=== PATIENT | female | born 1955 | race Caucasian/White ===

== ENCOUNTER 2017-06-22 12:52 | Outpatient (CLI) | payer OTHER | END 2017-06-22 12:53 | disposition home or self-care (01) | LOC: BICMAMMO 12:52 | PROVIDERS: ATTEND Family Medicine | DX: Z12.31 Encounter for screening mammogram for malignant neoplasm of breast (principal); Z13.820 Encounter for screening for osteoporosis; Z80.3 Family history of malignant neoplasm of breast; Z85.3 Personal history of malignant neoplasm of breast | CPT/HCPCS: 77063; 77067; 77080 ==

== ENCOUNTER 2018-03-28 18:07 | Emergency (ER) | payer OTHER ==
[~2018-03-28 18:07] MED LIST: ISOVUE-370 76%-LOCM 1 ML ONE
[2018-03-28 19:01] LABS: #Basophils 0.1 thou/uL (0.0-0.2); #Eosinphils 0.2 thou/uL (0.0-0.7); #Lymphocytes 3.1 thou/uL (1.20-3.40); #Monocytes 0.5 thou/uL (0.11-0.59); #Neutrophils 4.7 thou/uL (1.40-6.50); %Basophils 0.8 % (0.0-1.0); %Lymphocytes 36.4 % (21.0-51.0); %Neutrophils 54.8 % (42.0-75.0); Hemoglobin 14.1 g/dL (12.0-16.0); Mean Corpuscular HGB CONC 34.4 g/dL (32.0-36.0); Mean Corpuscular Hemoglobin 32.7 pg (27.0-31.0); Mean Corpuscular Volume 95.1 fL (78.0-98.0); Mean Platelet Volume 6.9 fL (7.4-10.4); Platelet Count 307 thou/uL (130-400); RBC Distribution Width 11.5 % (11.5-14.5); Red Blood Cell (RBC) Count 4.31 mill/uL (4.20-5.40); White Blood Cell (WBC) Count 8.6 thou/uL (4.8-10.8)
[2018-03-28 19:43] LABS: ALT (SGPT) 19 U/L (8-55); AST (SGOT) 32 U/L (5-34); Albumin 4.4 g/dL (3.4-4.8); Alcohol 63 mg/dL (Less than 10); Alkaline Phosphatase 112 U/L (40-150); Anion Gap 18 mmol/L (10-20); BUN (Urea Nitrogen) 11 mg/dL (9.8-20.1); Bilirubin, Total 0.2 mg/dL (0.2-1.2); Calc. Creatinine Clearance 0 mL/min (70-130); Calcium 9.7 mg/dL (7.8-10.44); Carbon Dioxide 17 mmol/L (23-31); Chloride 102 mmol/L (98-107); Estimated GFR-MDRD 81; Globulin 3.4 g/dL (2.4-3.5); Glucose 115 mg/dL (80-115); Lipase 63 U/L (8-78); Protein, Total 7.8 g/dL (6.0-8.3); Sodium 133 mmol/L (136-145)
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
[2018-03-28] MEDS ORDERED: traMADol HCl 50 MG TAB ONE (20:48)
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
--- NOTE | 2018-04-01 16:37 | EKG ---
Test Reason : Blood Pressure : / mmHG Vent. Rate : 088 BPM Atrial Rate : 088 BPM P-R Int : 144 ms QRS Dur : 116 ms QT Int : 382 ms P-R-T Axes : 053 023 006 degrees QTc Int : 462 ms Sinus rhythm with Premature atrial complexes with Abberant conduction Possible Left atrial enlargement Right bundle branch block Anterior infarct , age undetermined Abnormal ECG Confirmed by KEVON CERON, DR. Yost ([id number]) on 04/01/2018 4:37:16 PM Referred By: Confirmed By:DR. Ritika LUND MD
== END 2018-03-28 21:44 | disposition home or self-care (01) ==
LOC: ERS 18:07
DX: S92.321A Displaced fracture of second metatarsal bone, right foot, initial encounter for closed fracture (principal); K04.7 Periapical abscess without sinus; E04.1 Nontoxic single thyroid nodule; I10 Essential (primary) hypertension; E78.00 Pure hypercholesterolemia, unspecified; F41.9 Anxiety disorder, unspecified; F17.210 Nicotine dependence, cigarettes, uncomplicated; Z79.899 Other long term (current) drug therapy; V59.40XA Driver of pick-up truck or van injured in collision with unspecified motor vehicles in traffic accident, initial encounter
CPT/HCPCS: 70450; 71260; 72125; 74177; 80053; 80307; 83690; 85025; 93005; Q9966

== ENCOUNTER 2018-05-03 15:09 | Outpatient (CLI) | payer OTHER ==
--- NOTE | 2018-05-03 16:23 | ULT ---
ULTRASOUND THYROID: 05/03/18 HISTORY: 63-year-old female with solitary left thyroid nodule, found on recent chest CT. FINDINGS: Right lobe measures approximately 3.5 x 1.5 x 1.2 cm. Left lobe measures approximately 3.5 x 1.9 x 1.5 cm. Isthmus is 0.5 cm AP. Thyroid parenchymal echogenicity is bilaterally homogeneous and normal. There is a single 1.4 x 1.2 x 1.4 cm solid nodule in the left mid pole: Composition: Completely solid: 2 points. Echogenicity: Isoechoic: 1 point. Shape: Wider than tall: 0 points. Margin: Smooth: 0 points. Echogenic foci: None: 0 points. Total score: 3 points. TIRADS category 3: Mildly suspicious. Recommendation for category 3 is for fine needle aspiration only if greater than or equal to 2.5 cm. This is significantly less than that in size. IMPRESSION: 1. Solitary left thyroid nodule. 2. TIRADS category 3: Mildly suspicious. 3. Recommend serial followup thyroid ultrasounds at 1, 3, and 5 years. POS: [facility]
== END 2018-05-03 15:10 | disposition home or self-care (01) ==
LOC: BICULT 15:09
PROVIDERS: ATTEND Family Medicine
DX: E04.1 Nontoxic single thyroid nodule (principal)
CPT/HCPCS: 76536

== ENCOUNTER 2018-07-14 12:06 | Outpatient (CLI) | payer OTHER ==
--- NOTE | 2018-07-15 07:53 | MMO ---
Bilateral MAMMO Bilat Screen [facility]. CLINICAL HISTORY: Patient is 63 years old and is seen for screening. The patient has the following family history of breast cancer: sister, at age 36, premenopausal; maternal aunt, premenopausal; cousin gender unknown; mother; maternal aunt, premenopausal and maternal aunt, premenopausal. The patient has a history of malignant (generic) in the left breast at age 49. The patient has a history of left Lumpectomy in April, - malignant and left Excisional Biopsy in September, - benign. VIEWS: The views performed were: bilateral craniocaudal with tomosynthesis and bilateral mediolateral oblique with tomosynthesis. FILMS COMPARED: The present examination has been compared to prior imaging studies performed at [facility] on 08/10/2005, 09/28/2011, 04/13/2014, 06/19/2016 and 06/22/2017. MAMMOGRAM FINDINGS: The breasts are heterogeneously dense, which could obscure a lesion on mammography. There are stable benign appearing calcifications seen in both breasts. There are no suspicious masses, suspicious calcifications, or new areas of architectural distortion. IMPRESSION: THERE IS NO MAMMOGRAPHIC EVIDENCE OF MALIGNANCY. A ROUTINE FOLLOW-UP MAMMOGRAM IN 1 YEAR IS RECOMMENDED. THE RESULTS OF THIS EXAM WERE SENT TO THE PATIENT. ACR BI-RADS Category 2 - Benign finding MAMMOGRAPHY NOTE: 1. A negative mammogram report should not delay a biopsy if a dominant of clinically suspicious mass is present. 2. Approximately 10% to 15% of breast cancers are not detected by mammography. 3. Adenosis and dense breasts may obscure an underlying neoplasm.
== END 2018-07-14 12:07 | disposition home or self-care (01) ==
LOC: BICMAMMO 12:06
PROVIDERS: ATTEND Family Medicine
DX: Z12.31 Encounter for screening mammogram for malignant neoplasm of breast (principal); Z85.3 Personal history of malignant neoplasm of breast; Z80.3 Family history of malignant neoplasm of breast
CPT/HCPCS: 77063; 77067

== ENCOUNTER 2022-02-26 13:54 | Outpatient (CLI) | payer MEDICARE | END 2022-02-26 13:55 | disposition home or self-care (01) | LOC: TBSIIMAG 13:54 | PROVIDERS: ATTEND Student in an Organized Health Care Education/Training Program | DX: M54.2 Cervicalgia (principal); M47.812 Spondylosis without myelopathy or radiculopathy, cervical region; M50.321 Other cervical disc degeneration at C4-C5 level | CPT/HCPCS: 72141 ==

== ENCOUNTER 2022-03-13 07:47 | Outpatient (CLI) | payer MEDICARE | END 2022-03-13 07:48 | disposition home or self-care (01) | LOC: TBSIIMAG 07:47 | PROVIDERS: ATTEND Family Medicine | DX: M47.814 Spondylosis without myelopathy or radiculopathy, thoracic region (principal); M51.34 Other intervertebral disc degeneration, thoracic region | CPT/HCPCS: 72072; 72146 ==

== ENCOUNTER 2022-06-18 12:25 | Outpatient (CLI) | payer MEDICARE | END 2022-06-18 12:26 | disposition home or self-care (01) | LOC: BICRAD 12:25 | PROVIDERS: ATTEND Chiropractor | DX: M53.84 Other specified dorsopathies, thoracic region (principal); M43.9 Deforming dorsopathy, unspecified | CPT/HCPCS: 72081 ==

== ENCOUNTER 2022-11-13 11:25 | Outpatient (CLI) | payer MEDICARE | END 2022-11-13 11:26 | disposition home or self-care (01) | LOC: BICMAMMO 11:25 | PROVIDERS: ATTEND Student in an Organized Health Care Education/Training Program | DX: Z12.31 Encounter for screening mammogram for malignant neoplasm of breast (principal); Z90.12 Acquired absence of left breast and nipple; Z85.3 Personal history of malignant neoplasm of breast; Z80.3 Family history of malignant neoplasm of breast; Z91.89 Other specified personal risk factors, not elsewhere classified | CPT/HCPCS: 77063; 77067 ==

== ENCOUNTER 2022-12-07 08:53 | Outpatient (CLI) | payer MEDICARE | END 2022-12-07 08:54 | disposition home or self-care (01) | LOC: BICCT 08:53 | PROVIDERS: ATTEND Student in an Organized Health Care Education/Training Program | DX: Z12.2 Encounter for screening for malignant neoplasm of respiratory organs (principal); F17.210 Nicotine dependence, cigarettes, uncomplicated | CPT/HCPCS: 71271 ==

== ENCOUNTER 2023-01-12 08:35 | Outpatient (CLI) | payer MEDICARE | END 2023-01-12 08:36 | disposition home or self-care (01) | LOC: BICMAMMO 08:35 | PROVIDERS: ATTEND Student in an Organized Health Care Education/Training Program | DX: Z13.820 Encounter for screening for osteoporosis (principal); M81.0 Age-related osteoporosis without current pathological fracture; M85.88 Other specified disorders of bone density and structure, other site | CPT/HCPCS: 77080 ==

== ENCOUNTER 2023-08-30 07:57 | Outpatient (CLI) | payer MEDICARE ==
[2023-08-30] MEDS ORDERED: Iopamidol 370 76% 100 ML VIAL ONE (11:30)
== END 2023-08-30 07:58 | disposition home or self-care (01) ==
LOC: BICCT 07:57
PROVIDERS: ATTEND Physician Assistant
DX: I73.9 Peripheral vascular disease, unspecified (principal); I77.89 Other specified disorders of arteries and arterioles; D25.9 Leiomyoma of uterus, unspecified
CPT/HCPCS: 75635; 82565; Q9967

== ENCOUNTER 2023-09-05 19:04 | Emergency (ER) | payer MEDICARE, OTHER ==
[~2023-09-05 19:04] MED LIST changes: -ISOVUE-370 76%-LOCM 1 ML ONE; +Iopamidol-370 76% 500 ML MDV (1 ML CHARGE) ONE
[2023-09-05 19:35] LABS: #Basophils 0.05 10x3/uL (0.0-0.2); %Basophils 0.5 % (0.0-1.0); %Lymphocytes 46.1 % (21.0-51.0); %Monocytes 8.3 % (0.0-10.0); %Neutrophils 43.4 % (42.0-75.0); Hematocrit 37.3 % (36.0-47.0); Hemoglobin 12.8 g/dL (12.0-16.0); Mean Corpuscular HGB CONC 34.3 g/dL (32.0-36.0); Mean Corpuscular Hemoglobin 32.5 pg (27.0-31.0); Mean Corpuscular Volume 94.7 fL (78.0-98.0); Mean Platelet Volume 8.5 fL (7.4-10.4); Platelet Count 280 10x3/uL (130-400); RBC Distribution Width 12.9 % (11.5-14.5); Red Blood Cell (RBC) Count 3.94 mill/uL (4.20-5.40)
[2023-09-05 19:45] LABS: Alcohol 252.7 mg/dL (Less than 10)
[2023-09-05 19:47] LABS: ALT (SGPT) 19 U/L (8-55); AST (SGOT) 20 U/L (5-34); Alkaline Phosphatase 95 U/L (40-110); Anion Gap 15 mmol/L (10-20); BUN (Urea Nitrogen) 8 mg/dL (9.8-20.1); Bilirubin, Total 0.4 mg/dL (0.2-1.2); Calc. Creatinine Clearance 0 mL/min (70-130); Calcium 9.2 mg/dL (7.8-10.44); Carbon Dioxide 18 mmol/L (23-31); Chloride 97 mmol/L (98-107); Estimated GFR 100; Globulin 2.8 g/dL (2.4-3.5); Glucose 105 mg/dL (80-115); Lipase 57 U/L (8-78); Protein, Total 6.8 g/dL (5.8-8.1); Sodium 127 mmol/L (136-145)
[2023-09-05 19:48] LABS: INR-International Normal Ratio 0.9; PTT 29.3 sec (22.9-36.1); Prothrombin Time 12.1 sec (12.0-14.7)
[2023-09-05 19:53] LABS: Troponin I Less than 0.010 ng/mL (< 0.028)
[2023-09-05] MEDS ORDERED: fentaNYL 50 mcg/mL 1 mL Vial ONE ×2 (20:02→20:58)
[2023-09-05] MEDS ORDERED: Morphine 4 MG/ML VIAL ONE (21:59)
== END 2023-09-05 23:32 | disposition home or self-care (01) ==
LOC: ERS 19:04
DX: S52.572A Other intraarticular fracture of lower end of left radius, initial encounter for closed fracture (principal); I10 Essential (primary) hypertension; F17.210 Nicotine dependence, cigarettes, uncomplicated; W10.8XXA Fall (on) (from) other stairs and steps, initial encounter; Z79.82 Long term (current) use of aspirin
CPT/HCPCS: 29105; 70450; 71260; 72125; 73030; 73090; 74177; 80053; 80307; 83690; 84484; 85025; 85610; 85730; 93005; 96374; 96375; 96376; 99284; J2270; J3010; Q9967; 36415

== ENCOUNTER 2023-12-16 10:16 | Outpatient (CLI) | payer MEDICARE | END 2023-12-16 10:17 | disposition home or self-care (01) | LOC: BICCT 10:16 | PROVIDERS: ATTEND Family Medicine | DX: Z12.2 Encounter for screening for malignant neoplasm of respiratory organs (principal); F17.210 Nicotine dependence, cigarettes, uncomplicated; R91.8 Other nonspecific abnormal finding of lung field; J43.9 Emphysema, unspecified | CPT/HCPCS: 71271 ==

== ENCOUNTER 2024-01-07 11:59 | Outpatient (CLI) | payer MEDICARE ==
[2024-01-07 13:53] LABS: #Basophils 0.03 10x3/uL (0.0-0.2); %Basophils 0.4 % (0.0-1.0); %Eosinophils 1.5 % (0.0-10.0); %Monocytes 8.7 % (0.0-10.0); %Neutrophils 59.7 % (42.0-75.0); Hematocrit 34.1 % (36.0-47.0); Hemoglobin 12.2 g/dL (12.0-16.0); Mean Corpuscular HGB CONC 35.8 g/dL (32.0-36.0); Mean Corpuscular Hemoglobin 32.7 pg (27.0-31.0); Mean Corpuscular Volume 91.4 fL (78.0-98.0); Mean Platelet Volume 8.9 fL (7.4-10.4); Platelet Count 326 10x3/uL (130-400); RBC Distribution Width 13.3 % (11.5-14.5); Red Blood Cell (RBC) Count 3.73 mill/uL (4.20-5.40)
[2024-01-07 14:19] LABS: Anion Gap 13 mmol/L (10-20); BUN (Urea Nitrogen) 9 mg/dL (9.8-20.1); Calc. Creatinine Clearance 0 mL/min (70-130); Calcium 9.4 mg/dL (7.8-10.44); Carbon Dioxide 23 mmol/L (23-31); Chloride 92 mmol/L (98-107); Estimated GFR 99; Glucose 86 mg/dL (80-115); Potassium 3.5 mmol/L (3.5-5.1); Sodium 124 mmol/L (136-145)
== END 2024-01-07 12:00 | disposition home or self-care (01) ==
LOC: LABBT 11:59
PROVIDERS: ATTEND Specialist
DX: Z01.818 Encounter for other preprocedural examination (principal); R92.1 Mammographic calcification found on diagnostic imaging of breast; S42.212D Unspecified displaced fracture of surgical neck of left humerus, subsequent encounter for fracture with routine healing; S42.292D Other displaced fracture of upper end of left humerus, subsequent encounter for fracture with routine healing
CPT/HCPCS: 71045; 80048; 85025; 93005; 93010

== ENCOUNTER 2024-01-13 06:29 | Day surgery (SDC) | payer MEDICARE ==
[2024-01-07 12:41] VITALS: BMI 24.4
[2024-01-13] MEDS ORDERED: Ketorolac Tromethamine 30 MG (1 mL) VIAL ONE (08:30)
[2024-01-13] MEDS ORDERED: Acetaminophen 500 MG TAB ONE (08:31)
[2024-01-13] MEDS ORDERED: PROPOFOL 20 ML ONE (09:55)
[2024-01-13] MEDS ORDERED: Lidocaine 1% PF 5 ML VIAL ONE ×2 (09:55→10:08)
[2024-01-13] MEDS ORDERED: Midazolam HCl 2 mg/2 ml Vial ONE ×2 (10:04→10:36)
[2024-01-13] MEDS ORDERED: EPINEPHrine 1 MG/ML VIAL ONE (10:07)
[2024-01-13] MEDS ORDERED: Bupivacaine 0.25% HCL 30 ML VIAL ONE (10:08)
[2024-01-13] MEDS ORDERED: CEFAZOLIN 2 GM VIAL ONE (10:21)
[2024-01-13] MEDS ORDERED: fentaNYL PF 100 MCG/2 ML SYRINGE ONE (10:22)
[2024-01-13] MEDS ORDERED: Ondansetron PF 4 MG/2 ML Vial ONE (10:23)
[2024-01-13] MEDS ORDERED: Dexamethasone 20 MG/5 ML VIAL ONE (10:23)
[2024-01-13] MEDS ORDERED: PHENYLEPHRINE-NS 100 MCG/ML 10 ML SYRINGE ONE (10:47)
== END 2024-01-13 13:50 | disposition home or self-care (01) ==
LOC: SDC 06:29
PROVIDERS: ATTEND Specialist
PROC: 0HBT3ZX Excision of Right Breast, Percutaneous Approach, Diagnostic (ICD-10-PCS; principal; 2024-01-13)
DX: D05.11 Intraductal carcinoma in situ of right breast (principal); N60.11 Diffuse cystic mastopathy of right breast; I10 Essential (primary) hypertension; F17.200 Nicotine dependence, unspecified, uncomplicated; Z85.3 Personal history of malignant neoplasm of breast; Z87.59 Personal history of other complications of pregnancy, childbirth and the puerperium; Z90.49 Acquired absence of other specified parts of digestive tract; Z79.82 Long term (current) use of aspirin; Z79.1 Long term (current) use of non-steroidal anti-inflammatories (NSAID); Z79.899 Other long term (current) drug therapy
CPT/HCPCS: 19125; 19281; 76098; C1713; J0171; J0665; J1100; J1885; J2250; J2405; J2704; 88307

== ENCOUNTER 2024-03-28 09:57 | Outpatient (CLI) | payer MEDICARE | END 2024-03-28 09:58 | disposition home or self-care (01) | LOC: BICULT 09:57 | PROVIDERS: ATTEND Student in an Organized Health Care Education/Training Program | DX: D25.9 Leiomyoma of uterus, unspecified (principal); R60.0 Localized edema | CPT/HCPCS: 76856; 93976 ==

== ENCOUNTER 2024-03-31 15:15 | Emergency (ER) | payer MEDICARE ==
[2024-03-31 16:26] LABS: #Basophils 0.03 10x3/uL (0.0-0.2); %Basophils 0.4 % (0.0-1.0); %Eosinophils 3.4 % (0.0-10.0); %Lymphocytes 27.5 % (21.0-51.0); %Monocytes 9.5 % (0.0-10.0); %Neutrophils 58.2 % (42.0-75.0); Hematocrit 31.6 % (36.0-47.0); Hemoglobin 10.6 g/dL (12.0-16.0); Mean Corpuscular HGB CONC 33.5 g/dL (32.0-36.0); Mean Corpuscular Hemoglobin 32.1 pg (27.0-31.0); Mean Corpuscular Volume 95.8 fL (78.0-98.0); Mean Platelet Volume 8.8 fL (7.4-10.4); Platelet Count 330 10x3/uL (130-400); RBC Distribution Width 13.6 % (11.5-14.5)
[2024-03-31 16:49] LABS: ALT (SGPT) 12 U/L (Less than 34); AST (SGOT) 19 U/L (11-34); Albumin 3.9 g/dL (3.1-4.5); Alkaline Phosphatase 114 U/L (40-110); Anion Gap 13 mmol/L (10-20); BUN (Urea Nitrogen) 12 mg/dL (9.8-20.1); Bilirubin, Total 0.2 mg/dL (0.3-1.2); Calc. Creatinine Clearance 0 mL/min (70-130); Calcium 9.2 mg/dL (7.8-10.44); Carbon Dioxide 22 mmol/L (23-31); Chloride 102 mmol/L (98-107); Estimated GFR 97; Glucose 93 mg/dL (80-115); Potassium 4.2 mmol/L (3.5-5.1); Protein, Total 6.9 g/dL (5.8-8.1); Sodium 133 mmol/L (136-145)
[2024-03-31 16:52] LABS: Troponin I Less than 0.010 ng/mL (< 0.028)
== END 2024-03-31 20:02 | disposition home or self-care (01) ==
LOC: ERS 15:15
DX: R60.9 Edema, unspecified (principal); I10 Essential (primary) hypertension; F17.210 Nicotine dependence, cigarettes, uncomplicated
CPT/HCPCS: 36415; 71045; 80053; 83880; 84484; 85025; 93005

== ENCOUNTER 2025-01-31 08:40 | Outpatient (CLI) | payer MEDICARE | END 2025-01-31 08:41 | disposition home or self-care (01) | LOC: ULT 08:40 | PROVIDERS: ATTEND Family Medicine | DX: R63.5 Abnormal weight gain (principal); K82.4 Cholesterolosis of gallbladder | CPT/HCPCS: 76700 ==